=== PATIENT | female | born 1980 | race Caucasian/White ===

== ENCOUNTER 2019-08-03 11:29 | Emergency (ER) | payer SELFPAY ==
--- NOTE | 2019-08-03 13:15 | ER Document Report ---
HPI - HPI Patient complains to provider of: Cough body aches Time Seen by Provider: 08/03/19 13:04 Onset: Other - Thursday Onset/Duration: Persistent Pain Level: 0 Context: 38-year-old female presents emergency department with cough since April and body aches since Thursday. Denies vomiting diarrhea. Reports she had a fever on Thursday. No fever today but she took 400 mg of Motrin at approximately 09 100 at this morning. Not received a flu vaccine. Denies pain with void. Denies sore throat. Reports she was treated back in April with Augmentin for this cough but she is still coughing. Reports she quit smoking. Associated Symptoms: Body/muscle aches, Nonproductive cough Exacerbated by: Denies Relieved by: Denies Similar symptoms previously: Yes Recently seen / treated by doctor: No - CONSTITUTIONAL Constitutional: REPORTS: Fever - RESPIRATORY Respiratory: REPORTS: Coughing - REPRODUCTIVE Reproductive: DENIES: : Past Medical History - General Information source: Patient Last Menstrual Period: Hysterectomy - Social History Smoking Status: Former Smoker Chew tobacco use (# tins/day): No Frequency of alcohol use: Social Drug Abuse: None Occupation: Financial Reporting Consultant Family History: None Patient has suicidal ideation: No Patient has homicidal ideation: No - Medical History Medical History: Negative Past Surgical History: Reports: Hx Dilation and Curettage, Hx Gynecologic Surgery, Hx Hysterectomy Vertical Provider Document - CONSTITUTIONAL Agree With Documented VS: Yes Exam Limitations: No Limitations General Appearance: WD/WN, No Apparent Distress - Nontoxic looking happy smiling laughing - INFECTION CONTROL TRAVEL OUTSIDE OF THE [place] IN LAST 30 DAYS: No - HEENT HEENT: Atraumatic, Normal ENT Exam, Normocephalic. negative: Pharyngeal Erythema - Tonsillar hypertrophy good airway no exudate no peritonsillar abscess patient denies pain, clear voice opens mouth wide, Tympanic Membrane Bulging - NECK Neck: Normal Inspection, Supple. negative: Lymphadenopathy-Left, Lymphadenopathy-Right - RESPIRATORY Respiratory: Breath Sounds Normal, No Respiratory Distress. negative: Rhonchi, Wheezing - CARDIOVASCULAR Cardiovascular: Regular Rate - GI/ABDOMEN Gastrointestinal: Abdomen Non-Tender - MUSCULOSKELETAL/EXTREMETIES Musculoskeletal/Extremeties: MAEW, FROM - NEURO Level of Consciousness: Awake, Alert, Appropriate Motor/Sensory: No Motor Deficit - DERM Integumentary: Warm, Dry, No Rash Course - Re-evaluation Re-evalutation: 08/03/19 13:14 Patient reports cough since April treated with Augmentin once. Chest x-ray ordered. Patient looks good nontoxic respiratory rate even unlabored. No flu test ordered since patient has had symptoms since Thursday. She is eating drinking voiding as normal. 08/03/19 13:43 Chest x-ray negative. Respiratory rate even unlabored. Patient instructed on results. Instructed on good handwashing follow-up with her primary care provider and Shruthi Nino. She verbalized understanding to all instructions. Chest X-Ray 08/03/19 13:10 IMPRESSION: NO ACUTE RADIOGRAPHIC FINDING IN THE CHEST. - Vital Signs Vital signs: Temp Pulse Resp BP Pulse Ox 98.6 F 96 18 114/68 96 08/03/19 12:44 08/03/19 12:44 08/03/19 12:44 08/03/19 12:44 08/03/19 12:44 - Diagnostic Test Radiology reviewed: Image reviewed, Reports reviewed Discharge - Discharge Clinical Impression: Cough, Flu-like symptoms Condition: Stable Disposition: HOME, SELF-CARE Instructions: Shruthi Nino ([facility]) Additional Instructions: *You have been evaluated for cough, flulike symptoms *Increase fluid intake *Take medication as prescribed *Monitor your temperature, take Tylenol or Motrin as indicated *Follow up with a primary care provider within 1 week for recheck *Return to ED for worsening condition, changes, needs Prescriptions: Benzonatate [Shruthi Nino 100 mg Capsule] 100 mg PO ASDIR PRN #30 capsule PRN Reason:
--- NOTE | 2019-08-03 13:33 | RADIOLOGY REPORT (SQ) ---
EXAM DESCRIPTION: CHEST 2 VIEWS COMPLETED DATE/TIME: 08/03/2019 1:17 pm REASON FOR STUDY: cough COMPARISON: None. EXAM PARAMETERS: NUMBER OF VIEWS: two views TECHNIQUE: Digital Frontal and Lateral radiographic views of the chest acquired. RADIATION DOSE: NA LIMITATIONS: none FINDINGS: LUNGS AND PLEURA: No opacities, masses or pneumothorax. No pleural effusion. MEDIASTINUM AND HILAR STRUCTURES: No masses or contour abnormalities. HEART AND VASCULAR STRUCTURES: Heart normal size. No evidence for failure. BONES: No acute findings. HARDWARE: None in the chest. OTHER: No other significant finding. IMPRESSION: NO ACUTE RADIOGRAPHIC FINDING IN THE CHEST. TECHNICAL DOCUMENTATION: JOB ID: [id number] 2010 [employer]- All Rights Reserved Reading location - IP/workstation name: [email or web address]
[2019-08-03 13:59] VITALS: BP 99/67
== END 2019-08-03 14:03 | disposition home or self-care (01) ==
LOC: ER 11:29
DX: R05 Cough (principal); M79.10 Myalgia, unspecified site; Z90.710 Acquired absence of both cervix and uterus
CPT/HCPCS: 71046

== ENCOUNTER 2020-01-13 03:49 | Emergency (ER) | payer SELFPAY ==
[2020-01-13 03:58] VITALS: BP 124/84
== END 2020-01-13 06:04 | disposition left against medical advice (07) ==
LOC: ER 03:49
DX: Z53.21 Procedure and treatment not carried out due to patient leaving prior to being seen by health care provider (principal); R51 Headache